=== PATIENT | male | born 1965 | race African-American/Black ===

== ENCOUNTER 2022-07-26 17:43 | Inpatient (IN) | payer MEDICAID, OTHER ==
[~2022-07-26] VITALS: Ht 172.7 cm; Wt 109.7 kg
[2022-07-26] MEDS ORDERED: ASPirin 81 mg TAB PO ONE (18:15)
[2022-07-26] MEDS ORDERED: HYDROcodone-ACET 10/325MG TAB PO ONE (18:15)
[2022-07-26 18:27] LABS: Basophils # (auto) 0 10 ^3/uL (0-0.2); Basophils % (auto) 0.9 % (0.0-2.0); Eosinophils # (auto) 0.2 10 ^3/uL (0-0.8); Eosinophils % (auto) 3.6 % (0.0-7.0); Lymphocytes % (auto) 22.7 % (10.0-50.0); Mean Corpuscular Hemoglobin 27.4 pg (28.0-32.0); Mean Corpuscular Hgb Conc. 32.7 g/dL (32.0-36.0); Mean Corpuscular Volume 83.8 fL (80.0-100.0); Monocytes # (auto) 0.5 10 ^3/uL (0-1.3); Monocytes % (auto) 11.8 % (0.0-12.0); Neutrophils # (auto) 2.8 10 ^3/uL (1.6-8.6); Nucleated Red Blood Cells % 0.2 %; Red Blood Cells 5.13 10^6/uL (4.5-5.90); Red Cell Distribution Width 13.5 % (11.8-14.3); White Blood Cell 4.5 10^3/uL (4.4-10.8)
[2022-07-26 18:40] LABS: Albumin 3.6 g/dL (3.4-5.0); Calcium 8.3 mg/dL (8.5-10.1); Potassium 3.8 mmol/L (3.5-5.1)
[2022-07-26 18:44] LABS: BUN/Creatinine Ratio 9.5 (10.0-20.0); Bilirubin, Total 0.4 mg/dL (0.2-1.0); Total Protein 7.2 g/dL (6.4-8.2)
[2022-07-26] MEDS ORDERED: ONDANSETRON HCL 4 MG/2 ML VIAL IV ONE (18:45)
[2022-07-26] MEDS ORDERED: MORPHINE SULFATE 4 MG/ML SYR/VIAL IV ONE (18:45)
[2022-07-26] MEDS ORDERED: HEPARIN SODIUM (PORCINE) 5000 UNITS/ML 1ML VIAL IV ONE ×2 (19:30→23:15)
[2022-07-26] MEDS ORDERED: IOHEXOL 350 MG/ML 100ML IJ ONE (19:34)
[2022-07-26] MEDS ORDERED: HEPARIN DRIP/D5W 100UNITS/ML 250 ML IV SCH ×2 (20:00→23:15)
[2022-07-26] MEDS ORDERED: ACETAMINOPHEN 325 MG TAB PO PRN (21:15)
[2022-07-26] MEDS ORDERED: TEMAZEPAM 15 MG CAP PO PRN (21:15)
[2022-07-26] MEDS ORDERED: NITROGLYCERIN 0.4 MG SL TAB SL PRN (21:15)
[2022-07-26 21:48] LABS: INR 0.95 (0.9-1.15); Partial Thromboplastin Time 31.2 sec (24.6-33.4)
[2022-07-26] MEDS: ATORVASTATIN 20 MG TAB PO SCH (23:48)
[2022-07-26] MEDS: ONDANSETRON HCL 4 MG/2 ML VIAL IV PRN (23:53)
[2022-07-27] VITALS (8 sets, daily range): BP systolic 130–172; BP diastolic 88–113
[2022-07-27 04:11] LABS: Basophils # (auto) 0 10 ^3/uL (0-0.2); Basophils % (auto) 0.6 % (0.0-2.0); Eosinophils # (auto) 0.1 10 ^3/uL (0-0.8); Eosinophils % (auto) 1.3 % (0.0-7.0); Hematocrit 44.2 % (41.0-53.0); Hemoglobin 14.8 g/dL (13.5-17.5); Lymphocytes # (auto) 1.2 10 ^3/uL (0.4-5.4); Lymphocytes % (auto) 23.9 % (10.0-50.0); Mean Corpuscular Hemoglobin 28.1 pg (28.0-32.0); Mean Corpuscular Hgb Conc. 33.5 g/dL (32.0-36.0); Monocytes # (auto) 0.5 10 ^3/uL (0-1.3); Monocytes % (auto) 9.3 % (0.0-12.0); Neutrophils # (auto) 3.2 10 ^3/uL (1.6-8.6); Neutrophils % (auto) 64.9 % (37.0-80.0); Nucleated Red Blood Cells % 0.1 %; Red Blood Cells 5.25 10^6/uL (4.5-5.90); Red Cell Distribution Width 13.7 % (11.8-14.3)
[2022-07-27] MEDS: MORPHINE SULFATE INJ 2 MG/ml SYRG IV PRN ×4 (04:16→21:28)
[2022-07-27] MEDS: ONDANSETRON HCL 4 MG/2 ML VIAL IV PRN ×3 (04:16→21:28)
[2022-07-27 04:49] LABS: Albumin 3.4 g/dL (3.4-5.0); Calcium 8.7 mg/dL (8.5-10.1); Potassium 3.7 mmol/L (3.5-5.1)
[2022-07-27 04:50] LABS: BUN/Creatinine Ratio 9.2 (10.0-20.0)
[2022-07-27 04:53] LABS: Bilirubin, Total 0.5 mg/dL (0.2-1.0); Total Protein 7.8 g/dL (6.4-8.2)
[2022-07-27] MEDS ORDERED: LIDOCAINE 2%HCL (LOCAL ANESTH.) INJ 20ML MDV ONE (12:02)
[2022-07-27] MEDS ORDERED: IODIXANOL 320MG/ML 100ML BTL IV ONE (12:03)
[2022-07-27] MEDS ORDERED: HEPARIN SODIUM (PORCINE) 5000 UNITS/ML 1ML VIAL ONE (12:03)
[2022-07-27] MEDS ORDERED: ANGIOMAX 250 MG VIAL IV ONE (12:04)
[2022-07-27] MEDS ORDERED: MIDAZOLAM HCL 2MG/2ML 2ml VIAL (1mg/ml) ONE (12:04)
[2022-07-27] MEDS ORDERED: fentaNYL CITRATE 100 MCG/2 ML VL ONE (12:04)
[2022-07-27] MEDS ORDERED: VERAPAMIL 2.5MG/ML INJ 2ML VIAL IV ONE (12:05)
[2022-07-27] MEDS ORDERED: SODIUM CHL 0.9% 50 ML ONE (12:05)
[2022-07-27] MEDS ORDERED: TICAGRELOR 90 MG TAB ONE (12:53)
[2022-07-27] MEDS ORDERED: hydrALAZINE HCL 20 MG/ML VL IV ONE (14:00)
[2022-07-27] MEDS ORDERED: hydrALAZINE HCL 20 MG/ML VL ONE (14:07)
[2022-07-27] MEDS: ASPirin 81 mg TAB PO SCH (15:22)
[2022-07-27] MEDS: LISINOPRIL 10 MG TAB PO SCH (15:22)
[2022-07-27] MEDS: PANTOPRAZOLE 40 MG TAB PO SCH (15:22)
[2022-07-27] MEDS ORDERED: NITROGLYCERIN 0.4MG/HR TOPICAL PATCH TD ONE (16:15)
[2022-07-27] MEDS ORDERED: HYDROcodone-ACET 5/325MG TAB PO PRN (16:15)
[2022-07-27] MEDS ORDERED: ACETAMINOPHEN 500 MG TAB PO PRN (16:15)
[2022-07-27] MEDS: METOPROLOL SUCCINATE XL 50 MG TAB PO SCH (16:28)
[2022-07-27 17:05] LABS: Cholesterol 197 mg/dL (< 200); HDL Cholesterol 44 mg/dL (40-59); LDL Cholesterol 144 mg/dL (< 100); Triglycerides 84 mg/dL (< 150)
[2022-07-27] MEDS: DOCUSATE SOD 100 MG CAP PO SCH (21:19)
[2022-07-27] MEDS: ATORVASTATIN 20 MG TAB PO SCH (21:20)
[2022-07-27] MEDS: TICAGRELOR 90 MG TAB PO SCH (21:20)
[2022-07-28 05:18] VITALS: BP 138/93
[2022-07-28] MEDS: ONDANSETRON HCL 4 MG/2 ML VIAL IV PRN (05:39)
[2022-07-28] MEDS: MORPHINE SULFATE INJ 2 MG/ml SYRG IV PRN (05:40)
[2022-07-28 06:16] LABS: Basophils # (auto) 0 10 ^3/uL (0-0.2); Basophils % (auto) 0.2 % (0.0-2.0); Eosinophils # (auto) 0 10 ^3/uL (0-0.8); Eosinophils % (auto) 0.5 % (0.0-7.0); Hematocrit 43.4 % (41.0-53.0); Hemoglobin 14.8 g/dL (13.5-17.5); Lymphocytes % (auto) 14.7 % (10.0-50.0); Mean Corpuscular Hemoglobin 28.1 pg (28.0-32.0); Mean Corpuscular Volume 82.7 fL (80.0-100.0); Monocytes # (auto) 0.8 10 ^3/uL (0-1.3); Monocytes % (auto) 11.9 % (0.0-12.0); Neutrophils # (auto) 4.8 10 ^3/uL (1.6-8.6); Neutrophils % (auto) 72.7 % (37.0-80.0); Nucleated Red Blood Cells % 0.2 %; Red Blood Cells 5.25 10^6/uL (4.5-5.90); Red Cell Distribution Width 13.1 % (11.8-14.3); White Blood Cell 6.5 10^3/uL (4.4-10.8)
[2022-07-28 06:22] LABS: Calcium 8.9 mg/dL (8.5-10.1); Potassium 3.5 mmol/L (3.5-5.1)
[2022-07-28 06:24] LABS: BUN/Creatinine Ratio 9.7 (10.0-20.0)
[2022-07-28] MEDS: DOCUSATE SOD 100 MG CAP PO SCH (08:57)
[2022-07-28] MEDS: LISINOPRIL 10 MG TAB PO SCH (08:58)
[2022-07-28] MEDS: PANTOPRAZOLE 40 MG TAB PO SCH (08:58)
[2022-07-28] MEDS: ASPirin 81 mg TAB PO SCH (08:58)
[2022-07-28] MEDS: TICAGRELOR 90 MG TAB PO SCH (08:59)
[2022-07-28] MEDS: METOPROLOL SUCCINATE XL 50 MG TAB PO SCH (08:59)
[2022-07-28 09:00] VITALS: BP 127/89
[2022-07-28] MEDS ORDERED: LACTULOSE 20Gm/30ML SOLN PO ONE (10:00)
[2022-07-28] MEDS ORDERED: LACTULOSE 20Gm/30ML SOLN PO PRN (10:15)
[2022-07-28 13:01] VITALS: BP 138/97
[2022-07-28] MEDS ORDERED: ASPI-325 PO (14:19)
[2022-07-28] MEDS ORDERED: TICA90TA PO (14:19)
[2022-07-28] MEDS ORDERED: ATOR20TA50 PO (14:19)
[2022-07-28] MEDS ORDERED: METO-6 PO (14:19)
[2022-07-28 15:47] VITALS: BP 138/97
== END 2022-07-28 16:34 | disposition home or self-care (01) | DRG 174 ==
LOC: ER 17:43 → TELE 21:16 → TELE-WESTW 07-27 09:46
PROVIDERS: ADMIT Nurse Practitioner; ATTEND Nurse Practitioner Acute Care
PROC: 027136Z Dilation of Coronary Artery, Two Arteries with Three Drug-eluting Intraluminal Devices, Percutaneous Approach (ICD-10-PCS; principal; 2022-07-27)
PROC: B211YZZ Fluoroscopy of Multiple Coronary Arteries using Other Contrast (ICD-10-PCS; 2022-07-27)
DX: I21.4 Non-ST elevation (NSTEMI) myocardial infarction (principal); I11.0 Hypertensive heart disease with heart failure; I50.9 Heart failure, unspecified; E66.01 Morbid (severe) obesity due to excess calories; F17.200 Nicotine dependence, unspecified, uncomplicated; I25.10 Atherosclerotic heart disease of native coronary artery without angina pectoris; E78.5 Hyperlipidemia, unspecified; I48.91 Unspecified atrial fibrillation; Z68.36 Body mass index [BMI] 36.0-36.9, adult
CPT/HCPCS: 36415; 71045; 71046; 71275; 80048; 80053; 80061; 83735; 83880; 84484; 85025; 85610; 85730; 92929; 92941; 93005; 93306; 93454; 96365; 96375; 99152; 99153; 99291; C1874; G0378; J2250; J2405; Q9967

== ENCOUNTER 2023-12-19 02:31 | Emergency (ER) | payer MEDICAID ==
[~2023-12-19] VITALS: Ht 177.8 cm; Wt 115.3 kg
[~2023-12-19 02:31] MED LIST: ASPI-325 PO; ATOR20TA50 PO; METO-6 PO; TICA90TA PO
[2023-12-19 03:13] VITALS: PULSE 66; RESP 19; O2SAT 95
[2023-12-19 03:13] LABS: Basophils # (auto) 0.1 10 ^3/uL (0-0.2); Eosinophils # (auto) 0.1 10 ^3/uL (0-0.8); Eosinophils % (auto) 1.7 % (0.0-7.0); Hematocrit 43.3 % (41.0-53.0); Hemoglobin 14.1 g/dL (13.5-17.5); Lymphocytes # (auto) 3.1 10 ^3/uL (0.4-5.4); Lymphocytes % (auto) 47.8 % (10.0-50.0); Mean Corpuscular Hgb Conc. 32.6 g/dL (32.0-36.0); Mean Corpuscular Volume 85.8 fL (80.0-100.0); Monocytes # (auto) 0.4 10 ^3/uL (0-1.3); Monocytes % (auto) 6.7 % (0.0-12.0); Neutrophils # (auto) 2.8 10 ^3/uL (1.6-8.6); Neutrophils % (auto) 42.8 % (37.0-80.0); Platelet Count (auto) 220 10^3/uL (140-450); Red Blood Cells 5.05 10^6/uL (4.5-5.90); Red Cell Distribution Width 13.3 % (11.8-14.3); White Blood Cell 6.5 10^3/uL (4.4-10.8)
[2023-12-19 03:43] LABS: Chloride 111 mmol/L (98-107); Potassium 4.2 mmol/L (3.5-5.1); Sodium 141 mmol/L (136-145)
[2023-12-19 03:44] LABS: Anion Gap 6 (5-15); Carbon Dioxide 24 mmol/L (20-31)
[2023-12-19 03:45] LABS: Calcium 9.3 mg/dL (8.7-10.4)
[2023-12-19 03:50] LABS: BUN/Creatinine Ratio 13.3 (10.0-20.0); Blood Urea Nitrogen 15 mg/dL (9-23); Glucose 115 mg/dL (74-106)
[2023-12-19 04:52] LABS: Rapid Influenza A Negative (Negative); Rapid Influenza B Negative (Negative)
[2023-12-19 04:53] LABS: COVID19 ANTIGEN SOFIA FIA NEGATIVE (NEGATIVE)
[2023-12-19 11:01] VITALS: PULSE 54; RESP 16; O2SAT 97
[2023-12-19 15:11] VITALS: BP 105/57; PULSE 73; RESP 18; TEMP 98.3; O2SAT 94
== END 2023-12-19 15:38 | disposition short-term general hospital (02) ==
LOC: ER 02:31
DX: R55 Syncope and collapse (principal); R00.1 Bradycardia, unspecified; R06.00 Dyspnea, unspecified; R06.02 Shortness of breath; I10 Essential (primary) hypertension; E78.5 Hyperlipidemia, unspecified; F17.290 Nicotine dependence, other tobacco product, uncomplicated; I25.2 Old myocardial infarction; Z20.822 Contact with and (suspected) exposure to COVID-19; Z79.82 Long term (current) use of aspirin; Z79.899 Other long term (current) drug therapy; Z90.49 Acquired absence of other specified parts of digestive tract
CPT/HCPCS: 36415; 71045; 80048; 84484; 85025; 87426; 87804; 93005

== ENCOUNTER 2024-05-03 00:59 | Emergency (ER) | payer MEDICAID ==
[~2024-05-03] VITALS: Ht 175.3 cm; Wt 110.9 kg
--- NOTE | 2024-05-03 01:46 | ED.PDOC ---
HPI Comments 58 year old male presents to the ED with a chief complaint of chest pain onset today (05/03/24) around 00:30. Patient states he was in bed when he began experiencing chest pain, described as sharp, constant, rates pain 8/10. Patient experienced [place] about 5 weeks ago, had stents placed. PMHx [place], CAD, HLD, HTN. Denies shortness of breath, neck pain, headache, cough, congestion, chills, fever, nausea, vomiting, diarrhea. No other symptoms or modifying factors present at this time. Chief Complaint: Chest Pain Time Seen by MD: 01:36 Primary Care Provider: Pancho Reviewed Notes: Medications, Allergies Allergies: Coded Allergies: NO KNOWN ALLERGIES (Unverified , 07/26/22) Home Meds Active Scripts Atorvastatin Calcium (ATORVASTATIN CALCIUM) 20 Mg Tab, 20 MG PO HS for 60 Days, #60 TAB Prov:BERKLEY GOVEA INTERNAL COMMUNICATIONS MANAGER 07/28/22 Ticagrelor Base (BRILINTA) 90 Mg Tab, 90 MG PO BID for 60 Days, #120 TAB Prov:BERKLEY GOVEA INTERNAL COMMUNICATIONS MANAGER 07/28/22 Aspirin (Aspirin Low Dose) 81 Mg Tab, 162 MG PO DAILY for 60 Days, #120 TAB Prov:BERKLEY GOVEA INTERNAL COMMUNICATIONS MANAGER 07/28/22 Metoprolol Succinate (Toprol Xl) 50 Mg Tab, 25 MG PO DAILY for 60 Days, #30 TAB Prov:BERKLEY GOVEA INTERNAL COMMUNICATIONS MANAGER 07/28/22 Information Source: Patient Mode of Arrival: Ambulatory Severity: Moderate Timing: Minutes Duration: Since onset Prehospital treatment: None Location: Substernal Radiation: No Radiation Quality: Sharp Onset: At Rest Cardiac Risk Factors: Smoker, Hyperlipidemia, HTN PE Risk Factors: None History of: [place] Modifying Factors: Nothing Vital Signs Vital Signs Date Time Temp Pulse Resp B/P (MAP) Pulse Ox O2 Delivery O2 Flow Rate FiO2 05/03/24 02:34 66 14 97 Room Air* 0 21 05/03/24 01:56 98.3 111/80 (90) 98.3 Physical Exam General: Awake, alert and oriented. No acute distress. Skin: Skin in warm, dry and intact. Appropriate color for ethnicity. HEENT: The head is normocephalic and atraumatic. Conjunctivae are clear without exudates or hemorrhage. Sclera is non-icteric. EOM are intact. No signs of nystagmus. Eyelids are normal in appearance without swelling or lesions. Oral mucosa is pink and moist Neck: The neck is supple with normal range of motion. No JVD. Cardiac: Heart rate and rhythm are normal. No murmurs, gallops, or rubs are auscultated. Respiratory: No signs of respiratory distress. Lung sounds are clear in all lobes bilaterally without rales, ronchi, or wheezes. Abdominal: Abdomen is soft, non-tender without distention. Bowel sounds are present and normoactive in all four quadrants. Extremities: Upper and lower extremities are atraumatic in appearance without deformity or edema. Neurological: The patient is awake, alert and oriented to person, place, and time with normal speech. Speech is clear. There is no facial asymmetry. Psychiatric: Appropriate mood and affect. Good judgement and insight. No visual or auditory hallucinations. Review of Systems: REVIEW OF SYSTEMS: No fever, no chills, or fatigue HEENT: No sore throat, no earache, no congestion, no neck pain. Cardiac: No chest pain. No palpitations. Lungs: No shortness of breath, no cough. GI: No nausea, no vomiting, no diarrhea, no constipation, no abdominal pain : No dysuria, frequency, or urgency. No hematuria. Musculoskeletal: No joint pain , no joint swelling, no extremity edema. Skin: No rash, no itching. Neuro: No headache, no dizziness, no weakness Past Medical History PAST MEDICAL HISTORY: CAD, High Lipids, HTN, [place] Surgical History: Appendectomy, PTCA Family History Family History: Reviewed,noncontributory to illness Social History Smoker: Cigar Alcohol: Occasionally Drugs: Denies Drug Use Lives In: Home EKG EKG : Pulse Rate (adult): 202 Cardiac Rhythm: NSR (67 bpm) Was a procedure done? Was a procedure done?: No X-Ray, Labs, Meds, VS Vital Signs Date Time Temp Pulse Resp B/P (MAP) Pulse Ox O2 Delivery O2 Flow Rate FiO2 05/03/24 02:34 66 14 97 Room Air* 0 21 05/03/24 01:59 63 05/03/24 01:56 98.3 66 16 111/80 (90) 100 98.3 05/03/24 01:48 202 05/03/24 01:06 67 05/03/24 01:03 97.9 67 18 138/101 (113) 98 Lab Test 05/03/24 01:53 05/03/24 01:10 Range/Units Troponin I High Sensitivity 41 45 </=54 ng/L White Blood Count 4.0 L 4.4-10.8 10^3/uL Red Blood Count 4.45 L 4.5-5.90 10^6/uL Hemoglobin 12.5 L 13.5-17.5 g/dL Hematocrit 38.1 L 41.0-53.0 % Mean Corpuscular Volume 85.6 80.0-100.0 fL Mean Corpuscular Hemoglobin 28.1 28.0-32.0 pg Mean Corpuscular Hemoglobin Concent 32.8 32.0-36.0 g/dL Red Cell Distribution Width 13.8 11.8-14.3 % Platelet Count 185 140-450 10^3/uL Mean Platelet Volume 8.9 6.9-10.8 fL Neutrophils (%) (Auto) 43.1 37.0-80.0 % Lymphocytes (%) (Auto) 47.5 10.0-50.0 % Monocytes (%) (Auto) 7.1 0.0-12.0 % Eosinophils (%) (Auto) 2.0 0.0-7.0 % Basophils (%) (Auto) 0.3 0.0-2.0 % Neutrophils # (Auto) 1.7 1.6-8.6 10 ^3/uL Lymphocytes # (Auto) 1.9 0.4-5.4 10 ^3/uL Monocytes # (Auto) 0.3 0-1.3 10 ^3/uL Eosinophils # (Auto) 0.1 0-0.8 10 ^3/uL Basophils # (Auto) 0 0-0.2 10 ^3/uL Nucleated Red Blood Cells 0.1 % Sodium Level 141 136-145 mmol/L Potassium Level 4.2 3.5-5.1 mmol/L Chloride Level 110 H 98-107 mmol/L Carbon Dioxide Level 24 20-31 mmol/L Anion Gap 7 5-15 Blood Urea Nitrogen 6 L 9-23 mg/dL Creatinine 1.02 0.700-1.30 mg/dL Glomerular Filtration Rate Calc 84 >90 mL/min BUN/Creatinine Ratio 5.9 L 10.0-20.0 Serum Glucose 111 H 74-106 mg/dL Calcium Level 9.5 8.7-10.4 mg/dL Total Bilirubin 0.5 0.2-1.0 mg/dL Aspartate Amino Transferase (AST) 13 13-40 U/L Alanine Aminotransferase (ALT) 11 7-40 U/L Alkaline Phosphatase 84 46-116 U/L B-Type Natriuretic Peptide 132.27 0-100 pg/mL Total Protein 6.7 5.7-8.2 g/dL Albumin 4.2 3.2-4.8 g/dL Current Medications Medications (Trade) Dose Ordered Sig/Olive Route Start Time Stop Time Status Last Admin Aspirin 324 mg ONCE ONCE PO 05/03/24 01:30 05/03/24 01:33 DC 05/03/24 02:02 [place] [address] Ph: [phone] DIAGNOSTIC IMAGING Diagnostic Imaging Report : [id number] Signed PATIENT: GRACIE KEEACCT: [id number] UNIT: [id number] : 1965 LOC: ER ROOM / BED: / AGE / SEX: 58 / M ADM STATUS: REG ER SERVICE 9 ORDERING PHYSICIAN: JAYSON BROWNING MD PROCEDURE(s): CXR1 - CHEST XRAY 1 VIEW REASON: cp ORDER NUMBER(s): [id number], ACCESSION NUMBER(s): [id number] CHEST RADIOGRAPH Indication: cp Technique: Single frontal view of the chest was obtained Comparison: XY CHEST PORTABLE on DOS: 12/19/23, XY CHEST PORTABLE on DOS: 07/28/22 IMPRESSION: Heart appears normal in size. The lungs appear clear without focal airspace opacity, effusion, or pneumothorax ATED BY: RONN GARDNER MD DICTATED DATE/TIME: 05/03/24251 SIGNED BY: RONN GARDNER MD SIGNED DATE/TIME: 05/03/24251 CC: Time of 1ST Reevaluation: 02:06 Reevaluation 1ST: Unchanged Patient Education/Counseling: Diagnosis, Treatment, Prognosis Family Education/Counseling: No Family Present Departure 1 Departure Comments Extensive evaluation was performed in attempt to identify or rule out: (See dif ferential diagnosis section) The following tests were ordered, and results were reviewed by me and discussed with patient: (See diagnostic results section) The following test were independently interpreted by me: N/A I reviewed and agreed with the following test results read by other providers: N/A I reviewed the following notes from the pt's past medical encounters: N/A Additional information was gathered from interviewing the following independent historians: N/A Discussion of management or test interpretation with external physician/other qualified health personal care aide: N/A Addressed [ ]one or more chronic illnesses with severe exacerbation, progression, or side effects of treatment: [ ]an acute or chronic illness that poses a threat to life or bodily function: [ ] Decision regarding hospitalization or escalation of hospital level of care: Risk and benefits of admission for further treatment of patient's condition was considered. Due to patient's current clinical condition, high risk of decline and poor outcome if discharged and need for further inpatient management and monitoring, patient will be admitted to the hospital. Drug therapy requiring intensive monitoring for toxicity: N/A Parenteral controlled substances: N/A Decision regarding elective major surgery with identified patient or procedure risk factors: N/A Decision regarding emergency major surgery: N/A Decision not to resuscitate or to de-escalate care because of poor prognosis: N/A Diagnosis or treatment significantly limited by social determinants of health: N/A Decision regarding hospitalization or escalation of hospital level of care: Risks and benefits of admission for further treatment of patient's condition was considered however due to patient's stable condition patient will be discharged to follow up closely or return to care for worsening of condition or inability to follow up. Critical Care Note Critical Care Time?: No Stability Stability form required: No I personally scribed for JAYSON BROWNING MD ([email or web address]) on 05/03/24 at 01:46. Electronically submitted by Galina Mckinley ([email or web address]). I personally scribed for JAYSON BROWNING MD ([email or web address]) on 05/03/24 at 01:48. Electronically submitted by Galina Mckinley ([email or web address]). I personally scribed for JAYSON BROWNING MD ([email or web address]) on 05/03/24 at 03:38. Electronically submitted by Galina Mckinley ([email or web address]). JAYSON BROWNING MD May 03, 2024 01:46
[2024-05-03 01:56] VITALS: BP 111/80; TEMP 98.3
[2024-05-03] MEDS: ASPirin 81 mg TAB PO ONE (02:02)
[2024-05-03 02:06] LABS: Basophils # (auto) 0 10 ^3/uL (0-0.2); Basophils % (auto) 0.3 % (0.0-2.0); Eosinophils # (auto) 0.1 10 ^3/uL (0-0.8); Hematocrit 38.1 % (41.0-53.0); Hemoglobin 12.5 g/dL (13.5-17.5); Lymphocytes # (auto) 1.9 10 ^3/uL (0.4-5.4); Lymphocytes % (auto) 47.5 % (10.0-50.0); Mean Corpuscular Hemoglobin 28.1 pg (28.0-32.0); Mean Corpuscular Hgb Conc. 32.8 g/dL (32.0-36.0); Mean Corpuscular Volume 85.6 fL (80.0-100.0); Monocytes # (auto) 0.3 10 ^3/uL (0-1.3); Monocytes % (auto) 7.1 % (0.0-12.0); Neutrophils # (auto) 1.7 10 ^3/uL (1.6-8.6); Neutrophils % (auto) 43.1 % (37.0-80.0); Nucleated Red Blood Cells % 0.1 %; Platelet Count (auto) 185 10^3/uL (140-450); Red Blood Cells 4.45 10^6/uL (4.5-5.90); Red Cell Distribution Width 13.8 % (11.8-14.3)
[2024-05-03 02:14] LABS: Alanine Aminotransferase 11 U/L (7-40); Albumin 4.2 g/dL (3.2-4.8); Alkaline Phosphatase 84 U/L (46-116); Anion Gap 7 (5-15); BUN/Creatinine Ratio 5.9 (10.0-20.0); Calcium 9.5 mg/dL (8.7-10.4); Carbon Dioxide 24 mmol/L (20-31); Potassium 4.2 mmol/L (3.5-5.1); Sodium 141 mmol/L (136-145); Total Protein 6.7 g/dL (5.7-8.2)
[2024-05-03 02:15] LABS: Bilirubin, Total 0.5 mg/dL (0.2-1.0)
[2024-05-03 02:19] LABS: Aspartate Aminotransferase 13 U/L (13-40); Blood Urea Nitrogen 6 mg/dL (9-23); Chloride 110 mmol/L (98-107); Glucose 111 mg/dL (74-106)
[2024-05-03] MEDS: MORPHINE SULFATE INJ 2 MG/ml SYRG IV ONE (02:22)
[2024-05-03 02:34] VITALS: PULSE 66; RESP 14; O2SAT 97
--- NOTE | 2024-05-03 02:54 | DVH ---
CHEST RADIOGRAPH Indication: cp Technique: Single frontal view of the chest was obtained Comparison: XY CHEST PORTABLE on DOS: 12/19/23, XY CHEST PORTABLE on DOS: 07/28/22 IMPRESSION: Heart appears normal in size. The lungs appear clear without focal airspace opacity, effusion, or pn eumothorax
--- NOTE | 2024-05-04 13:15 | ECG ---
[facility] Test Date: 2024-05-03 Test Time: 01:06:54 Pat Name: GRACIE KEE Department: ER Room: Gender: M Sagger Maker: SARAH : 1965 Requested By: EMERGENCY EMERGENCY Order Number: [id number] Reading MD: Moustapha Elizabeth Measurements Intervals Surveyor Rate: 67 P: 25 DE: 202 QRS: -11 QRSD: 99 T: -9 QT: 433 QTc: 457 Interpretive Statements Sinus rhythm Borderline prolonged DE interval Abnormal R-wave progression, early transition Borderline T abnormalities, diffuse leads Electronically Signed On 05-05-2024 19:05:39 PDT by Moustapha Elizabeth Please click the below link to view image of tracing.
--- NOTE | 2024-05-04 13:20 | ECG ---
[facility] Test Date: 2024-05-03 Test Time: 01:59:28 Pat Name: GRACIE KEE Department: ER Room: Gender: M Director Of Clinical Trials: ER : 1965 Requested By: EMERGENCY EMERGENCY Order Number: [id number] Reading MD: Moustapha Elizabeth Measurements Intervals [place] Rate: 63 P: 24 DE: 194 QRS: -14 QRSD: 102 T: -57 QT: 446 QTc: 457 Interpretive Statements Sinus rhythm Abnormal R-wave progression, early transition Borderline T abnormalities, diffuse leads Electronically Signed On 05-05-2024 19:05:43 PDT by Moustapha Elizabeth Please click the below link to view image of tracing.
== END 2024-05-03 04:04 | disposition left against medical advice (07) ==
LOC: ER 00:59
DX: R07.89 Other chest pain (principal); I10 Essential (primary) hypertension; I25.10 Atherosclerotic heart disease of native coronary artery without angina pectoris; E78.5 Hyperlipidemia, unspecified; F17.290 Nicotine dependence, other tobacco product, uncomplicated; I25.2 Old myocardial infarction; Z79.02 Long term (current) use of antithrombotics/antiplatelets; Z79.82 Long term (current) use of aspirin; Z79.899 Other long term (current) drug therapy; Z90.49 Acquired absence of other specified parts of digestive tract
CPT/HCPCS: 36415; 71045; 80053; 83880; 84484; 85025; 93005; 99285; J2270